=== PATIENT | male | born 1980 | race Caucasian/White ===

== ENCOUNTER 2018-02-06 08:19 | Emergency (ER) | payer MEDICAID ==
[2018-02-06] MEDS ORDERED: OLANZapine DISINTEGR 5 MG TAB PO ONE (08:55)
[2018-02-06] MEDS ORDERED: OLANZapine 5 MG TAB PO ONE (08:55)
[2018-02-06 09:02] LABS: PLATELET COUNT 232 10^3/uL (150-400)
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
[2018-02-07 09:39] VITALS: BP 129/70
== END 2018-02-07 10:55 ==
DX: F20.9 Schizophrenia, unspecified (principal)
CPT/HCPCS: 80305; G0480